=== PATIENT | male | born 1960 | race Caucasian/White ===

== ENCOUNTER 2016-11-12 12:12 | Emergency (ER) | payer BC, OTHER ==
[~2016-11-12] VITALS: Ht 167.6 cm; Wt 77.1 kg
[~2016-11-12 12:12] MED LIST: ALLO100T; GLIM4TAB; LOSA50TA21; LOVA40TA2; METF10002; OMEP20CA10; ZOLP10TA6
--- NOTE | 2016-11-12 12:38 | NUR ---
PT DOES NOT REMEMBER HIS HOME MEDICATION. PT STATED THAT HIS IS GOING TO BRING MEDICATION LIST LATER.
[2016-11-12 12:55] LABS: BASOPHILS % (AUTO) 0.5 % (0.0-2.0); CALCIUM 9.1 mg/dL (8.5-10.1); CREATININE 1.1 mg/dL (0.6-1.3); EOSINOPHILS # (AUTO) 0.1 K/uL (0.0-0.7); EOSINOPHILS % (AUTO) 1.1 % (0.0-7.0); HEMATOCRIT 38.6 % (36.7-47.1); HEMOGLOBIN 13.1 g/dL (12.5-16.3); LYMPHOCYTES # (AUTO) 1.7 K/uL (20.0-40.0); MEAN CORPUSCULAR HEMOGLOBIN 32.6 uug (23.8-33.4); MEAN CORPUSCULAR HGB CONC 34 g/dL (32.5-36.3); MONOCYTES # (AUTO) 0.4 K/uL (2.0-10.0); MONOCYTES % (AUTO) 6.4 % (0.0-11.0); NEUTROPHILS # (AUTO) 4.6 K/uL (1.8-8.9); PLATELET COUNT (AUTO) 185 K/uL (152-348); POTASSIUM 4.2 mmol/L (3.5-5.1); RED BLOOD CELL COUNT(AUTO) 4.02 MIL/uL (4.06-5.63); RED CELL DISTRIBUTION WIDTH 13.4 % (12.1-16.2); WHITE BLOOD COUNT (AUTO) 6.8 K/uL (3.6-10.2)
[2016-11-12 13:08] LABS: ALBUMIN 3.6 g/dL (3.4-5.0); BILIRUBIN,DIRECT 0.1 mg/dL (0.0-0.2); BILIRUBIN,TOTAL 0.6 mg/dL (0.2-1.0); TOTAL PROTEIN, SERUM 7.1 g/dL (6.4-8.2)
[2016-11-12] MEDS ORDERED: IV NORMAL SALINE 1000 ML BAG IV ONE (14:00)
[2016-11-12] MEDS ORDERED: IOHEXOL 300MG/ML 100 ML INFUS..BTL ONE (14:00)
[2016-11-12] MEDS ORDERED: IV NORMAL SALINE 250 ML IV ONE (14:01)
[2016-11-12] MEDS ORDERED: ASPI81TA31 PO (15:04)
[2016-11-12] MEDS ORDERED: FENO45CA2 PO (15:04)
[2016-11-12] MEDS ORDERED: CARV3.122 PO (15:04)
[2016-11-12] MEDS ORDERED: SITA1TAB6 PO (15:04)
[2016-11-12] MEDS ORDERED: ZOLP10TA6 PO (15:04)
[2016-11-12] MEDS ORDERED: ALLO100T PO (15:04)
[2016-11-12] MEDS ORDERED: ATOR80TA PO (15:04)
[2016-11-12] MEDS ORDERED: OMEP40CA37 PO (15:04)
[2016-11-12] MEDS ORDERED: TICA90TA PO (15:04)
[2016-11-12] MEDS ORDERED: LOSA100T15 PO (15:04)
[2016-11-12] MEDS ORDERED: LISI-607 PO (15:04)
[2016-11-12] MEDS ORDERED: GLIM4TAB3 PO (15:04)
--- NOTE | 2016-11-12 15:30 | NUR ---
PT VOIDED 3 TIMES
--- NOTE | 2016-11-12 15:49 | NUR ---
PT DECIDED TO LEAVE ER, SAYS HAS ALOT OF THINGS THAT HAS TO DO. TALKED TO MD AND STILL WANTS TO GO HOME. HE SAYS FEELS GOOD, DENEIS ANY WEAKNESS, DIZZINESS OR ANY N/V.
== END 2016-11-12 15:58 | disposition home or self-care (01) ==
LOC: ER 12:12 → MERGE 12:12 → ER 15:58
DX: R07.9 Chest pain, unspecified (principal); I10 Essential (primary) hypertension; E11.9 Type 2 diabetes mellitus without complications; E78.00 Pure hypercholesterolemia, unspecified; I25.2 Old myocardial infarction; Z79.84 Long term (current) use of oral hypoglycemic drugs; Z79.899 Other long term (current) drug therapy; Z79.82 Long term (current) use of aspirin
CPT/HCPCS: 36415; 70030-TC; 70450; 71010; 71260; 85025; 85730; 93005; A4663; J7030; J7050; Q9967

== ENCOUNTER 2017-04-11 09:34 | Outpatient (CLI) | payer BC, OTHER ==
[~2017-04-11 09:34] MED LIST changes: -ALLO100T; +ALLO100T PO; +ASPI81TA31 PO; +ATOR80TA PO; +CARV3.122 PO; +FENO45CA2 PO; -GLIM4TAB; +GLIM4TAB3 PO; +LISI-607 PO; +LOSA100T15 PO; -LOSA50TA21; -LOVA40TA2; -METF10002; -OMEP20CA10; +OMEP40CA37 PO; +SITA1TAB6 PO; +TICA90TA PO; -ZOLP10TA6; +ZOLP10TA6 PO
[2017-04-11 10:10] LABS: *BILIRUBIN,URIN NEGATIVE (NEGATIVE); *BLOOD, URINE NEGATIVE (NEGATIVE); *CLARITY,URINE CLEAR (CLEAR); *COLOR,URINE YELLOW (YELLOW); *KETONES,URINE NEGATIVE (NEGATIVE); *PROTEIN,URINE NEGATIVE (NEGATIVE); *UROBILINOGEN,URINE 0.2 E.U./dl (NORMAL); LEUKOCYTE ESTERASE ,URINE NEGATIVE (NEGATIVE); NITRITE, URINE NEGATIVE (NEGATIVE); UGLUCOSE NEGATIVE (NEGATIVE)
[2017-04-11 10:11] LABS: BASOPHILS % (AUTO) 0.7 % (0.0-2.0); EOSINOPHILS # (AUTO) 0.1 K/uL (0.0-0.7); EOSINOPHILS % (AUTO) 1.4 % (0.0-7.0); HEMATOCRIT 38.1 % (40-50); HEMOGLOBIN 12.7 G/DL (14.0-18.0); LYMPHOCYTES # (AUTO) 1.3 K/UL (0.8-4.8); MEAN CORPUSCULAR HEMOGLOBIN 31.9 UUG (27.0-31.0); MEAN CORPUSCULAR HGB CONC 33 g/dL (32.0-37.0); MEAN CORPUSCULAR VOLUME 95.7 FL (82.0-92.0); MONOCYTES # (AUTO) 0.4 K/UL (0.1-1.30); MONOCYTES % (AUTO) 7.4 % (0.0-11.0); NEUTROPHILS # (AUTO) 3.2 K/UL (1.8-8.9); NEUTROPHILS % (AUTO) 65.5 % (38.5-71.5); PLATELET COUNT (AUTO) 158 K/UL (150-450); RED BLOOD CELL COUNT(AUTO) 3.99 MIL/UL (4.7-6.1)
[2017-04-11 10:19] LABS: BACTERIA,URINE FEW /HPF (NONE SEEN); RBC,URINE 0-3 /HPF (0-3); SQUAMOUS EPITHELIAL CELL,UR FEW /HPF (NONE SEEN); WBC,URINE 0-3 /HPF (0-3)
[2017-04-11 10:50] LABS: BILIRUBIN,TOTAL 0.4 mg/dL (0.2-1.0); CREATININE 1.3 mg/dL (0.6-1.3); POTASSIUM 4.5 mmol/L (3.5-5.1); TOTAL PROTEIN, SERUM 7.3 g/dL (6.4-8.2); URIC ACID 4.6 mg/dL (3.5-7.2)
[2017-04-11 10:59] LABS: THYROID STIMULATING HORMONE 2.577 mIU/mL (0.358-3.740)
[2017-04-12 07:06] LABS: *TESTOSTERONE, SERUM 388 ng/dL (264-916)
== END 2017-04-11 23:59 | disposition home or self-care (01) ==
LOC: LAB 09:34
PROVIDERS: ATTEND Internal Medicine Interventional Cardiology
DX: Z00.00 Encounter for general adult medical examination without abnormal findings (principal); E78.5 Hyperlipidemia, unspecified; E11.9 Type 2 diabetes mellitus without complications; I10 Essential (primary) hypertension
CPT/HCPCS: 36415; 82306; 84153; 84403; 84443; 84550; 85025

== ENCOUNTER 2017-10-29 08:39 | Outpatient (CLI) | payer BC, OTHER ==
[2017-10-29 09:06] LABS: *BILIRUBIN,URIN NEGATIVE (NEGATIVE); *BLOOD, URINE NEGATIVE (NEGATIVE); *CLARITY,URINE SLIGHTLY CLOUDY (CLEAR); *COLOR,URINE YELLOW (YELLOW); *KETONES,URINE NEGATIVE (NEGATIVE); *PROTEIN,URINE NEGATIVE (NEGATIVE); *UROBILINOGEN,URINE 0.2 E.U./dl (NORMAL); LEUKOCYTE ESTERASE ,URINE NEGATIVE (NEGATIVE); NITRITE, URINE NEGATIVE (NEGATIVE); UGLUCOSE TRACE (NEGATIVE)
[2017-10-29 09:12] LABS: BASOPHILS % (AUTO) 0.2 % (0.0-2.0); EOSINOPHILS # (AUTO) 0.1 K/uL (0.0-0.7); EOSINOPHILS % (AUTO) 1.2 % (0.0-7.0); HEMATOCRIT 39.1 % (36.7-47.1); HEMOGLOBIN 13.4 g/dL (12.5-16.3); LYMPHOCYTES # (AUTO) 1.3 K/uL (20.0-40.0); MEAN CORPUSCULAR HEMOGLOBIN 31.9 uug (23.8-33.4); MEAN CORPUSCULAR HGB CONC 34 g/dL (32.5-36.3); MEAN CORPUSCULAR VOLUME 93.3 fL (73.0-96.2); MONOCYTES # (AUTO) 0.4 K/uL (2.0-10.0); MONOCYTES % (AUTO) 7.4 % (0.0-11.0); NEUTROPHILS # (AUTO) 3.7 K/uL (1.8-8.9); NEUTROPHILS % (AUTO) 67.2 % (38.5-71.5); PLATELET COUNT (AUTO) 165 K/uL (152-348); RED BLOOD CELL COUNT(AUTO) 4.19 MIL/uL (4.06-5.63); WHITE BLOOD COUNT (AUTO) 5.6 K/uL (3.6-10.2)
[2017-10-29 09:17] LABS: BACTERIA,URINE FEW /HPF (NONE SEEN); MUCUS,URINE MODERATE /LPF (0-FEW); RBC,URINE NONE SEEN /HPF (0-3); URINE AMORPHOUS URATE MODERATE /HPF; WBC,URINE 0-3 /HPF (0-3)
[2017-10-29 09:48] LABS: BILIRUBIN,TOTAL 0.4 mg/dL (0.2-1.0); CREATININE 1.2 mg/dL (0.6-1.3); POTASSIUM 3.7 mmol/L (3.5-5.1); TOTAL PROTEIN, SERUM 7.2 g/dL (6.4-8.2)
[2017-10-29 10:31] LABS: THYROID STIMULATING HORMONE 2.697 mIU/mL (0.358-3.740)
[2017-10-30 08:11] LABS: *TESTOSTERONE, SERUM 282 ng/dL (264-916); TRIIODOTHYRONINE, FREE 3.3 pg/mL (2.0-4.4)
[2017-11-01 14:06] LABS: TEST, %FREE+WK BOUND 24.2 % (9.0-46.0); TEST, FREE+WK BOUND 68.2 ng/dL (40.0-250.0)
== END 2017-10-29 23:59 | disposition home or self-care (01) ==
LOC: LAB 08:39
PROVIDERS: ATTEND Legal Medicine
DX: Z00.01 Encounter for general adult medical examination with abnormal findings (principal)
CPT/HCPCS: 36415; 82306; 82746; 84153; 84402; 84403; 84443; 84481; 85025

== ENCOUNTER 2018-09-22 11:43 | Outpatient (CLI) | payer BC, OTHER ==
[~2018-09-22 11:43] MED LIST changes: -LOSA100T15 PO; +LOSA100T31 PO
[2018-09-22 13:38] LABS: BILIRUBIN,TOTAL 0.4 mg/dL (0.2-1.0); CREATININE 1.1 mg/dL (0.6-1.3); POTASSIUM 4.1 mmol/L (3.5-5.1); TOTAL PROTEIN, SERUM 7.7 g/dL (6.4-8.2)
[2018-09-22 13:43] LABS: BASOPHILS % (AUTO) 0.5 % (0.0-2.0); EOSINOPHILS # (AUTO) 0.1 K/uL (0.0-0.7); EOSINOPHILS % (AUTO) 1.4 % (0.0-7.0); HEMATOCRIT 39.6 % (36.7-47.1); HEMOGLOBIN 13.6 g/dL (12.5-16.3); LYMPHOCYTES # (AUTO) 1.5 K/uL (20.0-40.0); LYMPHOCYTES % (AUTO) 26.6 % (20.5-51.5); MEAN CORPUSCULAR HEMOGLOBIN 31.6 uug (23.8-33.4); MEAN CORPUSCULAR HGB CONC 34 g/dL (32.5-36.3); MEAN CORPUSCULAR VOLUME 92.1 fL (73.0-96.2); MONOCYTES # (AUTO) 0.4 K/uL (2.0-10.0); MONOCYTES % (AUTO) 7.9 % (0.0-11.0); NEUTROPHILS # (AUTO) 3.5 K/uL (1.8-8.9); NEUTROPHILS % (AUTO) 63.6 % (38.5-71.5); PLATELET COUNT (AUTO) 179 K/uL (152-348); WHITE BLOOD COUNT (AUTO) 5.5 K/uL (3.6-10.2)
== END 2018-09-22 23:59 | disposition home or self-care (01) ==
LOC: LAB 11:43
PROVIDERS: ATTEND Legal Medicine
DX: E78.00 Pure hypercholesterolemia, unspecified (principal); R53.1 Weakness; I10 Essential (primary) hypertension; D64.9 Anemia, unspecified
CPT/HCPCS: 36415; 85025

== ENCOUNTER 2019-03-02 09:22 | Outpatient (CLI) | payer BC, OTHER ==
[2019-03-02 10:00] LABS: POTASSIUM 4.3 mmol/L (3.5-5.1)
== END 2019-03-02 23:59 | disposition home or self-care (01) ==
LOC: LAB 09:22
PROVIDERS: ATTEND Legal Medicine
DX: E11.9 Type 2 diabetes mellitus without complications (principal); I10 Essential (primary) hypertension
CPT/HCPCS: 36415

== ENCOUNTER 2019-03-13 10:22 | Outpatient (CLI) | payer BC, OTHER ==
[2019-03-13 10:50] LABS: BILIRUBIN,DIRECT 0.1 mg/dL (0.0-0.2); BILIRUBIN,TOTAL 0.5 mg/dL (0.2-1.0); TOTAL PROTEIN, SERUM 7.3 g/dL (6.4-8.2)
== END 2019-03-13 23:59 | disposition home or self-care (01) ==
LOC: LAB 10:22
PROVIDERS: ATTEND Internal Medicine Interventional Cardiology
DX: E11.9 Type 2 diabetes mellitus without complications (principal); I10 Essential (primary) hypertension; E78.5 Hyperlipidemia, unspecified; I25.10 Atherosclerotic heart disease of native coronary artery without angina pectoris; I25.2 Old myocardial infarction; E78.00 Pure hypercholesterolemia, unspecified
CPT/HCPCS: 36415

== ENCOUNTER 2020-09-06 15:28 | Outpatient (CLI) | payer BC, OTHER ==
[~2020-09-06 15:28] MED LIST changes: -GLIM4TAB3 PO; +GLIM4TAB37 PO; -LISI-607 PO; +LISI-782 PO; +OMEP40CA13 PO; -OMEP40CA37 PO
== END 2020-09-06 23:59 | disposition home or self-care (01) ==
LOC: LAB 15:28
PROVIDERS: ATTEND Legal Medicine
DX: M17.11 Unilateral primary osteoarthritis, right knee (principal); M11.261 Other chondrocalcinosis, right knee; M25.761 Osteophyte, right knee; M76.891 Other specified enthesopathies of right lower limb, excluding foot
CPT/HCPCS: 73562

== ENCOUNTER 2020-11-23 10:32 | Outpatient (CLI) | payer BC, OTHER ==
[2020-11-23 11:17] LABS: BASOPHILS % (AUTO) 0.2 % (0.0-2.0); EOSINOPHILS # (AUTO) 0.1 K/uL (0.0-0.7); EOSINOPHILS % (AUTO) 1.4 % (0.0-7.0); HEMATOCRIT 43.9 % (36.7-47.1); HEMOGLOBIN 14.9 g/dL (12.5-16.3); LYMPHOCYTES # (AUTO) 1.2 K/uL (20.0-40.0); LYMPHOCYTES % (AUTO) 21.1 % (20.5-51.5); MEAN CORPUSCULAR HEMOGLOBIN 32.2 uug (23.8-33.4); MEAN CORPUSCULAR HGB CONC 34 g/dL (32.5-36.3); MEAN CORPUSCULAR VOLUME 95.1 fL (73.0-96.2); MONOCYTES # (AUTO) 0.5 K/uL (2.0-10.0); MONOCYTES % (AUTO) 7.9 % (0.0-11.0); NEUTROPHILS % (AUTO) 69.4 % (38.5-71.5); PLATELET COUNT (AUTO) 128 K/uL (152-348); RED BLOOD CELL COUNT(AUTO) 4.62 MIL/uL (4.06-5.63); WHITE BLOOD COUNT (AUTO) 5.8 K/uL (3.6-10.2)
[2020-11-23 12:20] LABS: THYROID STIMULATING HORMONE 1.646 mIU/mL (0.358-3.740)
[2020-11-23 12:27] LABS: BILIRUBIN,TOTAL 0.5 mg/dL (0.2-1.0); CREATININE 0.9 mg/dL (0.6-1.3); POTASSIUM 4.2 mmol/L (3.5-5.1); TOTAL PROTEIN, SERUM 7.4 g/dL (6.4-8.2)
[2020-11-23 13:01] LABS: *BILIRUBIN,URIN NEGATIVE (NEGATIVE); *BLOOD, URINE NEGATIVE (NEGATIVE); *CLARITY,URINE CLEAR (CLEAR); *COLOR,URINE YELLOW (YELLOW); *KETONES,URINE NEGATIVE (NEGATIVE); *UROBILINOGEN,URINE 0.2 E.U./dl (NORMAL); LEUKOCYTE ESTERASE ,URINE NEGATIVE (NEGATIVE); NITRITE, URINE NEGATIVE (NEGATIVE); PH,URINE 5.5 (5.0-8.0)
[2020-11-23 13:04] LABS: UGLUCOSE 2+ (NEGATIVE)
[2020-11-23 19:02] LABS: URIC ACID 5.4 mg/dL (3.5-7.2)
[2020-11-25 16:06] LABS: *MICROALBUMIN, UR 4.3 ug/mL; CREATININE, URINE 70.7 mg/dL
[2020-11-25 16:07] LABS: MICROALBUMIN/CREAT RATIO, UR 6 mg/g
== END 2020-11-23 23:59 | disposition home or self-care (01) ==
LOC: LAB 10:32
PROVIDERS: ATTEND Legal Medicine
DX: I12.9 Hypertensive chronic kidney disease with stage 1 through stage 4 chronic kidney disease, or unspecified chronic kidney disease (principal); E11.22 Type 2 diabetes mellitus with diabetic chronic kidney disease; N18.9 Chronic kidney disease, unspecified; E78.00 Pure hypercholesterolemia, unspecified; E03.9 Hypothyroidism, unspecified; D64.9 Anemia, unspecified; E55.9 Vitamin D deficiency, unspecified; Z00.00 Encounter for general adult medical examination without abnormal findings
CPT/HCPCS: 82043; 82306; 82570; 82746; 83550; 84153; 84402; 84403; 84443; 84550; 85025

== ENCOUNTER → 2020-12-16 | Outpatient (CLI) | payer BC, OTHER | END | disposition home or self-care (01) | LOC: US 12-14 14:29 | PROVIDERS: ATTEND Legal Medicine | DX: K76.0 Fatty (change of) liver, not elsewhere classified (principal); R79.89 Other specified abnormal findings of blood chemistry | CPT/HCPCS: 76700 ==

== ENCOUNTER → 2021-08-03 | Outpatient (CLI) | payer BC, OTHER ==
[~2021-08-03] MED LIST changes: -OMEP40CA13 PO; +OMEP40CA21 PO
[2021-08-03 13:30] LABS: CREATININE 0.9 mg/dL (0.6-1.3); POTASSIUM 3.8 mmol/L (3.5-5.1)
[2021-08-03 13:33] LABS: HEMATOCRIT 44.2 % (36.7-47.1); MEAN CORPUSCULAR HEMOGLOBIN 30.5 uug (23.8-33.4); MEAN CORPUSCULAR VOLUME 90.2 fL (73.0-96.2); PLATELET COUNT (AUTO) 151 K/uL (152-348)
== END | disposition home or self-care (01) ==
LOC: LAB 12:59
PROVIDERS: ATTEND Legal Medicine
DX: Z01.812 Encounter for preprocedural laboratory examination (principal)
CPT/HCPCS: 36415; 85025; 85610; 85730

== ENCOUNTER 2021-08-14 06:11 | Outpatient (CLI) | payer BC, OTHER ==
[2021-08-14 08:57] LABS: BILIRUBIN,DIRECT 0.2 mg/dL (0.0-0.2); BILIRUBIN,TOTAL 0.4 mg/dL (0.2-1.0); TOTAL PROTEIN, SERUM 7.5 g/dL (6.4-8.2)
[2021-08-14 09:01] LABS: THYROID STIMULATING HORMONE 1.474 mIU/mL (0.358-3.740)
== END 2021-08-14 23:59 | disposition home or self-care (01) ==
LOC: LAB 06:11
PROVIDERS: ATTEND Legal Medicine
DX: E11.9 Type 2 diabetes mellitus without complications (principal); E78.5 Hyperlipidemia, unspecified; E03.9 Hypothyroidism, unspecified; D64.9 Anemia, unspecified
CPT/HCPCS: 36415; 83615; 84153; 84443

== ENCOUNTER → 2021-10-20 | Outpatient (CLI) | payer BC, OTHER ==
[~2021-10-20] MED LIST changes: +IOHEXOL 350 100 ML INFUS..BTL ONE; +IV NORMAL SALINE 250 ML IV ONE; +SWABABLE VALVE TRANSFER SET EA MC ONE
== END | disposition home or self-care (01) ==
LOC: CT 10:44
PROVIDERS: ATTEND Legal Medicine
DX: I10 Essential (primary) hypertension (principal); I65.23 Occlusion and stenosis of bilateral carotid arteries; J34.1 Cyst and mucocele of nose and nasal sinus
CPT/HCPCS: 36415; 70496; 82565; 84520; Q9967; J7050

== ENCOUNTER 2022-07-13 08:30 | Outpatient (CLI) | payer BC, OTHER ==
[~2022-07-13 08:30] MED LIST changes: -IOHEXOL 350 100 ML INFUS..BTL ONE; -IV NORMAL SALINE 250 ML IV ONE; -SWABABLE VALVE TRANSFER SET EA MC ONE
[2022-07-13 09:21] LABS: HEMATOCRIT 41.8 % (36.7-47.1); MEAN CORPUSCULAR HEMOGLOBIN 29.9 uug (23.8-33.4); MEAN CORPUSCULAR VOLUME 89.3 fL (73.0-96.2); PLATELET COUNT (AUTO) 170 K/uL (152-348)
[2022-07-13 09:30] LABS: *BILIRUBIN,URIN NEGATIVE (NEGATIVE); *BLOOD, URINE NEGATIVE (NEGATIVE); *CLARITY,URINE CLEAR (CLEAR); *COLOR,URINE YELLOW (YELLOW); *KETONES,URINE NEGATIVE (NEGATIVE); *UROBILINOGEN,URINE 0.2 E.U./dl (NORMAL); LEUKOCYTE ESTERASE ,URINE NEGATIVE (NEGATIVE); NITRITE, URINE NEGATIVE (NEGATIVE); UGLUCOSE 2+ (NEGATIVE)
[2022-07-13 10:21] LABS: THYROID STIMULATING HORMONE 2.035 mIU/mL (0.358-3.740)
[2022-07-13 10:38] LABS: BILIRUBIN,TOTAL 0.5 mg/dL (0.2-1.0); CREATININE 1.1 mg/dL (0.6-1.3); TOTAL PROTEIN, SERUM 7.4 g/dL (6.4-8.2)
[2022-07-13 11:03] LABS: URIC ACID 5.5 mg/dL (3.5-7.2)
[2022-07-14 08:06] LABS: *TESTOSTERONE, SERUM 337 ng/dL (264-916)
[2022-07-17 12:07] LABS: TEST, %FREE+WK BOUND 19.7 % (9.0-46.0); TEST, FREE+WK BOUND 66.4 ng/dL (40.0-250.0)
== END 2022-07-13 23:59 | disposition home or self-care (01) ==
LOC: LAB 08:30
PROVIDERS: ATTEND Legal Medicine
DX: Z00.00 Encounter for general adult medical examination without abnormal findings (principal); E11.9 Type 2 diabetes mellitus without complications; R53.1 Weakness; E29.1 Testicular hypofunction; N40.0 Benign prostatic hyperplasia without lower urinary tract symptoms; I10 Essential (primary) hypertension; E03.9 Hypothyroidism, unspecified
CPT/HCPCS: 82043; 82570; 82746; 83550; 84153; 84402; 84403; 84443; 84550; 85025

== ENCOUNTER 2025-03-17 14:33 | Emergency (ER) | payer BC, MEDICARE, OTHER ==
[~2025-03-17] VITALS: Ht 170.2 cm; Wt 81.6 kg
[2025-03-17] MEDS ORDERED: CARV12.5 PO (14:56)
[2025-03-17] MEDS ORDERED: NPH,100I SQ (14:56)
[2025-03-17] MEDS ORDERED: INSU100V7 SQ (14:56)
[2025-03-17] MEDS ORDERED: GABA300C PO (14:56)
[2025-03-17] MEDS ORDERED: METF-440 PO (14:56)
[2025-03-17] MEDS ORDERED: INSU100C SQ (14:56)
[2025-03-17] MEDS ORDERED: FERR325T24 PO (14:56)
[2025-03-17] MEDS ORDERED: DULA0.75 SQ (14:56)
[2025-03-17] MEDS ORDERED: SEMA1PEN SQ (14:56)
[2025-03-17] MEDS ORDERED: EMPA25TA PO (14:56)
[2025-03-17] MEDS ORDERED: EZET10TA15 PO (14:56)
[2025-03-17] MEDS ORDERED: AMLO10TA59 PO (14:56)
[2025-03-17] MEDS ORDERED: VALS320T2 PO (14:56)
[2025-03-17] MEDS: IV NORMAL SALINE 1000 ML BAG IV ONE (15:23)
[2025-03-17] MEDS ORDERED: CEFTRIAXONE /D5W 50ML IVPB **ER PYXIS IV ONE (15:24)
[2025-03-17 15:34] LABS: PLATELET COUNT (AUTO) 139 K/uL (152-348); RED BLOOD CELL COUNT(AUTO) 3.49 MIL/uL (4.06-5.63); RED CELL DISTRIBUTION WIDTH 16.5 % (12.1-16.2); WHITE BLOOD COUNT (AUTO) 5.2 K/uL (3.6-10.2)
[2025-03-17] MEDS: CEFTRIAXONE 1 G in IV DEXTROSE 5% 50 ML IV ONE ×2 (15:38→19:31)
[2025-03-17 15:44] LABS: CREATININE 1.6 mg/dL (0.6-1.3); SODIUM SERUM 133 mmol/L (136-145); UREA NITROGEN, BLOOD 29 mg/dL (7-18)
[2025-03-17 15:51] LABS: ASPARTATE AMINOTRANSFERASE 21 U/L (15-37); TOTAL PROTEIN, SERUM 6.3 g/dL (6.4-8.2)
[2025-03-17 15:53] LABS: LACTIC ACID 2.0 mmol/L (0.4-2.0)
[2025-03-17] MEDS ORDERED: METRONIDAZOLE 500 MG/NS 100ML 100 ML IV ONE (16:06)
[2025-03-17] MEDS: METRONIDAZOLE 500 MG/NS 100ML 100 ML IV ONE (16:14)
[2025-03-17 17:09] LABS: *BILIRUBIN,URIN NEGATIVE (NEGATIVE); *BLOOD, URINE 1+ (NEGATIVE); *CLARITY,URINE CLEAR (CLEAR); *COLOR,URINE YELLOW (YELLOW); *KETONES,URINE NEGATIVE (NEGATIVE); *PROTEIN,URINE NEGATIVE (NEGATIVE); *UROBILINOGEN,URINE 1.0 E.U./dl (NORMAL); LEUKOCYTE ESTERASE ,URINE 2+ (NEGATIVE); NITRITE, URINE POSITIVE (NEGATIVE); UGLUCOSE NEGATIVE (NEGATIVE)
[2025-03-17 17:58] LABS: SQUAMOUS EPITHELIAL CELL,UR FEW /HPF (NONE SEEN)
[2025-03-17] MEDS ORDERED: CEFTRIAXONE 1 G VIAL IM ONE (19:15)
[2025-03-17] MEDS ORDERED: CEFTRIAXONE 1 G VIAL ONE (19:27)
[2025-03-17] MEDS: IV NORMAL SALINE 500 ML BAG IV ONE (19:31)
[2025-03-17 20:05] VITALS: BP 112/62
[2025-03-17] MEDS ORDERED: ONDA4TAB11 PO (20:34)
[2025-03-17] MEDS ORDERED: CIPR500S2 PO (20:34)
[2025-03-17 20:58] VITALS: BP 114/66; TEMP 98.2; O2SAT 97
== END 2025-03-17 21:00 | disposition left against medical advice (07) ==
LOC: ER 14:33
DX: N10 Acute pyelonephritis (principal); R06.00 Dyspnea, unspecified; R10.13 Epigastric pain; R42 Dizziness and giddiness; R11.2 Nausea with vomiting, unspecified; E11.9 Type 2 diabetes mellitus without complications; E78.00 Pure hypercholesterolemia, unspecified; I25.2 Old myocardial infarction; I10 Essential (primary) hypertension; Z79.82 Long term (current) use of aspirin; Z79.84 Long term (current) use of oral hypoglycemic drugs; Z79.899 Other long term (current) drug therapy
CPT/HCPCS: 99285; 74176; 96365; 96361; 71045; 96367; 96366; 80076; 80048; 81001; 83880; 85025; 84145; 85730; 87040 ×2; 87086; 84484 ×2; 36415; 93005; 83605 ×2; J0696 ×2; J3490; J7040 ×3; A4606; A4663